=== PATIENT | female | born 1975 | race Caucasian/White ===

== ENCOUNTER → 2016-10-08 | Outpatient (CLI) | payer OTHER ==
[~2016-10-08] MED LIST: ADVIL200 MG PO; ALLEGRA180 MG PO; FLEXERIL10 MG PO; LEVOTHROID (S112 MCG PO; LEVOTHROID (S125 MCG; NORCO 5-325 MG1 TAB PO
== END | disposition disaster alternative care site (69) ==
LOC: GRAD 11:08
PROC: 3E0U33Z Introduction of Anti-inflammatory into Joints, Percutaneous Approach (ICD-10-PCS; principal; 2016-10-08)
PROC: 3E0U3BZ Introduction of Anesthetic Agent into Joints, Percutaneous Approach (ICD-10-PCS; 2016-10-08)
DX: M25.569 Pain in unspecified knee (principal)